=== PATIENT | female | born 1955 | race American Indian/Alaskan Native ===

== ENCOUNTER 2017-06-15 17:05 | Emergency (ER) | payer OTHER ==
[2017-06-15 18:20] LABS: BASO % 0.1 % (0.0-2.0); EOS # 0.1 K/uL (0.0-0.7); EOS % 0.5 % (0.0-4.0); HEMATOCRIT 36.8 % (34.0-47.0); LYMPH # 3.3 K/uL (1.0-4.3); LYMPH % 34.7 % (20.0-40.0); MEAN CELL VOLUME 79.5 fL (81.0-99.0); MEAN CORPUSCULAR HEMOGLOBIN 26.2 pg (27.0-31.0); MEAN PLATELET VOLUME 10.1 fL (7.2-11.7); MONO # 0.5 K/uL (0.0-0.8); MONO % 5.1 % (0.0-10.0); RED CELL DISTRIBUTION WIDTH 15.3 % (11.5-14.5); WHITE BLOOD COUNT 9.5 K/uL (4.8-10.8)
[2017-06-15 18:28] LABS: CHLORIDE 95 mmol/L (98-107); POTASSIUM 3.1 mmol/L (3.6-5.2); SODIUM 140 mmol/L (132-148)
[2017-06-15 18:31] LABS: ALB/GLOB RATIO 1.1 (1.0-2.1); ALKALINE PHOSPHATASE 91 U/L (38-126); ALT/SGPT 29 U/L (9-52); AST/SGOT 26 U/L (14-36); BILIRUBIN,TOTAL 0.8 mg/dL (0.2-1.3); BLOOD UREA NITROGEN 22 mg/dL (7-17); CARBON DIOXIDE 29 mmol/L (22-30); GFR AFRICAN-AMERICAN > 60; GLUCOSE,RANDOM 104 mg/dL (65-105); TOTAL PROTEIN 8.5 g/dL (6.3-8.3)
[2017-06-15 18:32] LABS: CALCIUM 9.6 mg/dl (8.6-10.4)
[2017-06-15] MEDS ORDERED: Potassium Chloride 10 mEq ER Tab PO STA (19:31)
[2017-06-15] MEDS ORDERED: Potassium Chloride 20 mEq ER Tab PO ONE (19:44)
--- NOTE | 2017-06-15 19:45 | C.PDOC ---
Time Seen by Provider: 06/15/17 19:31 Chief Complaint (Nursing): High Blood Pressure Past Medical History Vital Signs: Last Vital Signs Temp 98 F 06/15/17 17:14 Pulse 77 06/15/17 17:14 Resp 16 06/15/17 17:14 BP 170/99 H 06/15/17 17:14 Pulse Ox 98 06/15/17 17:14 - Medical History PMH: HTN - Social History Hx Alcohol Use: No Hx Substance Use: No - Immunization History Hx Tetanus Toxoid Vaccination: No Hx Influenza Vaccination: No Hx Pneumococcal Vaccination: No ED Course And Treatment - Laboratory Results Result Diagrams: 06/15/17 18:17 06/15/17 18:17 O2 Sat by Pulse Oximetry: 98 Disposition Counseled Patient/Family Regarding: Studies Performed, Diagnosis - Disposition Disposition Time: 19:45 Forms: [facility] (Croatian)
--- NOTE | 2017-06-15 19:47 | C.PDOC ---
History Of Present Illness Patient presents to the ED with complaints of headache and high blood pressure since June 07. Patient denies visual changes, nausea, vomiting, weakness, or slurred speech. Time Seen by Provider: 06/15/17 19:31 Chief Complaint (Nursing): High Blood Pressure History Per: Patient History/Exam Limitations: no limitations Onset/Duration Of Symptoms: Days (8 days, began Jun.07 ) Current Symptoms Are (Timing): Still Present Associated Symptoms: Headache. denies: Blurred Vision, Focal Weakness Severity: Mild Pain Scale Rating Of: 2 (discomfort) Exacerbating Factor(s): Pos: None Recent travel outside of the [place]: No Past Medical History Reviewed: Historical Data, Nursing Documentation, Vital Signs Vital Signs: Last Vital Signs Temp 98 F 06/15/17 17:14 Pulse 77 06/15/17 17:14 Resp 16 06/15/17 17:14 BP 170/99 H 06/15/17 17:14 Pulse Ox 98 06/15/17 20:08 - Medical History PMH: HTN Family History: States: No Known Family Hx - Social History Hx Alcohol Use: No Hx Substance Use: No - Immunization History Hx Tetanus Toxoid Vaccination: No Hx Influenza Vaccination: No Hx Pneumococcal Vaccination: No Review Of Systems Constitutional: Positive for: Other (high blood pressure ). Negative for: Fever , Chills Eyes: Negative for: Vision Change Gastrointestinal: Negative for: Nausea, Vomiting Neurological: Positive for: Headache. Negative for: Weakness, Numbness Physical Exam - Physical Exam Appears: Non-toxic, No Acute Distress Skin: Warm, Dry Head: Atraumatic Eye(s): bilateral: Normal Inspection Oral Mucosa: Moist Teeth: Edentulous Neck: Supple Chest: Symmetrical, No Deformity Cardiovascular: Rhythm Regular Respiratory: No Rales, No Rhonchi, No Wheezing Gastrointestinal/Abdominal: Bowel Sounds (good bowel sounds ), Soft, No Tenderness, No Distention, No Guarding, No Rebound, Other (obese abdomen ) Extremity: Normal ROM, No Tenderness Neurological/Psych: Oriented x3 (awake, alert, and oriented), Normal Speech, Normal Cognition, Normal Motor, Normal Sensation, Other (No focal deficits) ED Course And Treatment - Laboratory Results Result Diagrams: 06/15/17 18:17 06/15/17 18:17 ECG: Interpreted By Me, Viewed By Me ECG Rhythm: Sinus Rhythm (71), ST/T Changes (inf lat ischemic changes) O2 Sat by Pulse Oximetry: 98 (room air ) Pulse Ox Interpretation: Normal Reevaluation Time: 21:20 Reassessment Condition: Improved NIHSS Stroke Scale - Date/Time Evaluation Performed Date Performed: 06/15/17 When Was NIHSS Performed: Baseline - How Severe is the Stoke Level of Consciousness: 0=Alert LOC to Questions: 0=Both comments correct LOC to commands: 0=Obeys both correctly Best Gaze: 0=Normal Visual: 0=No visual loss Facial: 0=Normal Motor Arm - Left: 0=No drift Motor Arm - Right: 0=No drift Motor Leg - Left: 0=No drift Motor Leg - Right: 0=No drift Limb Ataxia: 0=Absent Sensory: 0=Normal Best Language: 0=No aphasia Dysarthia: 0=Normal articulation Extinction & Inattention (Neglect): 0=Normal, no object Score: 0 Severity Of Stroke: 0= No Stroke Medical Decision Making Medical Decision Making: Upon provider reevaluation patient is feeling better, is medically stable, and requires no further treatment in the ED at this time. Patient will be discharged home . Counseling was provided and all questions were answered regarding diagnosis and need for follow up with dr gonzalez. There is agreement to discharge plan. Return if symptoms persist or worsen. Disposition Counseled Patient/Family Regarding: Studies Performed, Diagnosis, Need For Followup - Disposition Referrals: Kyra Gonzalez DO [[facility]] - Disposition: HOME/ ROUTINE Disposition Time: 19:45 Condition: FAIR Instructions: Acute Headache (DC), Hypertension (DC) Forms: [facility] ([place]ri[place]) - Clinical Impression Clinical Impression: Headache, Hypertension - Scribe Statement The provider has reviewed the documentation as recorded by the Scribe Daniela Limon All medical record entries made by the Scribe were at my direction and personally dictated by me. I have reviewed the chart and agree that the record accurately reflects my personal performance of the history, physical exam, medical decision making, and the department course for this patient. I have also personally directed, reviewed, and agree with the discharge instructions and disposition.
--- NOTE | 2017-06-15 21:17 | CT ---
EXAM: CT Head Without Intravenous Contrast CLINICAL HISTORY: 61 years old, female; Pain; Headache; Headache not specified TECHNIQUE: Axial computed tomography images of the head/brain without intravenous contrast. All CT scans at this facility use one or more dose reduction techniques, viz.: automated exposure control; ma/kV adjustment per patient size (including targeted exams where dose is matched to indication; i.e. head); or iterative reconstruction technique. COMPARISON: 01/22/2015 FINDINGS: Brain: No acute intracranial hemorrhage. Decreased attenuation within the periventricular white matter, more advanced than one would expect for patient of this age. Basal ganglia calcifications are also present, unchanged from 2015. No edema. Ventricles: No significant ventriculomegaly. Bones: No acute displaced fracture. Sinuses: Unremarkable as visualized. No acute sinusitis. Mastoid air cells: Unremarkable as visualized. No mastoid effusion. IMPRESSION: No acute intracranial hemorrhage, or suspicious mass effect. Basal ganglia mineralization is prominent considering the patient's age. Still, this may be physiologic. Other considerations are prior infection, thyroid/parathyroid disease or inherited metabolic conditions.
[2017-06-15 22:02] VITALS: BP 164/98; PULSE 76; RESP 18; TEMP 98.1; O2SAT 99
== END 2017-06-15 22:00 | disposition home or self-care (01) ==
LOC: C.ER 17:05
DX: I10 Essential (primary) hypertension (principal); R51 Headache